=== PATIENT | female | born 1960 | race Caucasian/White ===

== ENCOUNTER → 2024-11-26 15:17 | Outpatient (CLI) | payer BC, SELFPAY ==
--- NOTE | 2024-11-26 15:27 | DI.CT.S_ITS ---
PROCEDURE: CT LUNG LOW DOSE SCREENING INDICATIONS: HX SMOKING 30 YEARS TECHNIQUE: Noncontrast 2.0-2.5 mm thick sections acquired from the pulmonary apices to the posterior costophrenic angles. 7 mm thick axial MIP, and 5 mm coronal and sagittal reformats were then acquired. For radiation dose reduction, the following was used: automated exposure control, adjustment of mA and/or kV according to patient size. COMPARISON: None. FINDINGS: Image quality: Diagnostic. Lower Neck: No enlarged lymph nodes. Thyroid: No thyroid nodules which require sonographic follow up, per consensus guidelines. Axillae: No enlarged lymph nodes. Chest Wall: Unremarkable. Bones: Mild degenerative changes. Lungs and Pleura: No pneumothorax or pleural effusions. Mild emphysematous changes. Scattered pulmonary micro nodules are present. For example in the right upper lobe (3/147). Heart: Heart size is normal. No pericardial effusion. Thoracic Vessels: The aorta and pulmonary arteries demonstrate normal size. Mild atherosclerotic calcifications. Mediastinum and [place]: No enlarged lymph nodes. Esophagus: No wall thickening. No hiatal hernia. Upper Abdomen: Visualized upper abdomen solid organs and bowel loops appear normal. IMPRESSION: Scattered pulmonary micro nodules are present. LUNG-RADS to; continued annual screening, if eligible. Clinically Significant Non-pulmonary Findings: None. Dictated by: Alexis Cota M.D. on 11/27/2024 at 13:47 Approved by: Alexis Cota M.D. on 11/27/2024 at 13:50
== END ==
LOC: CT 15:27
PROVIDERS: PCP Physician Assistant; Referring Provider Physician Assistant; Visit Provider Physician Assistant
DX: Z12.2 Encounter for screening for malignant neoplasm of respiratory organs (principal); Z87.891 Personal history of nicotine dependence; R91.8 Other nonspecific abnormal finding of lung field
CPT/HCPCS: 71271